=== PATIENT | male | born 1940 | race Caucasian/White ===

== ENCOUNTER 2022-10-23 16:47 | Emergency (ER) | payer OTHER ==
[~2022-10-23] VITALS: Ht 175.3 cm; Wt 72.6 kg
[2022-10-23 16:56] VITALS: BP 166/106
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
[2022-10-23] MEDS ORDERED: diphenhydrAMINE 50 MG/ML VIAL IM ONE (18:20)
[2022-10-23] MEDS ORDERED: OLANZapine 10 MG VIAL IM ONE (18:20)
--- NOTE | 2022-10-23 19:22 | NUR ---
report given to JOSE E Wade for continuity of care.
[2022-10-23] MEDS ORDERED: OLANZapine 5 MG ODT PO PRN (19:25)
--- NOTE | 2022-10-23 20:00 | NUR ---
AWAKE, SLIGHTLY RESTLESS. PT WAS REFUSING LAB DRAW, BUT NOW AGREES.
[2022-10-23 20:11] LABS: BASOPHILS # (AUTO) 0.1 K/uL (0.00-0.22); BASOPHILS % (AUTO) 0.7 % (0.0-2.0); EOSINOPHILS # (AUTO) 0.3 K/uL (0-0.4); EOSINOPHILS % (AUTO) 2.7 % (0.0-4.0); HEMATOCRIT 32.7 % (36-52); LYMPHOCYTES # (AUTO) 1.2 K/uL (2.0-11.5); LYMPHOCYTES % (AUTO) 12.9 % (20.5-51.1); MEAN CORPUSCULAR HEMOGLOBIN 25 pg (27-31); MEAN CORPUSCULAR HGB CONC 34 g/dL (33-37); MEAN CORPUSCULAR VOLUME 75.5 fL (80-94); MONOCYTES # (AUTO) 0.9 K/uL (0.8-1.0); MONOCYTES % (AUTO) 9.3 % (1.7-9.3); NEUTROPHILS # (AUTO) 7.1 K/uL (1.8-7.7); NEUTROPHILS % (AUTO) 74.4 % (42.2-75.2); PLATELET COUNT (AUTO) 229 K/uL (140-450); RED BLOOD CELL COUNT(AUTO) 4.33 MIL/uL (4.20-6.10); RED CELL DISTRIBUTION WIDTH 14.6 % (11.6-13.7); WHITE BLOOD COUNT (AUTO) 9.5 K/uL (4.8-10.8)
[2022-10-23 20:30] LABS: ANION GAP 13.2 (8-16); ASPARTATE AMINOTRANSFERASE 16 U/L (15-37); CARBON DIOXIDE 27.2 mmol/L (21-32); CHLORIDE 103 mmol/L (98-107); CREATININE 1.6 mg/dL (0.6-1.3); GLUCOSE 166 mg/dL (74-106); LIPASE 29 U/L (73-393); MAGNESIUM 1.9 mg/dL (1.8-2.4); PHOSPHORUS 2.6 mg/dL (2.5-4.9); POTASSIUM 3.4 mmol/L (3.5-5.1); SODIUM SERUM 140 mmol/L (136-145); TOTAL BILIRUBIN 0.5 mg/dL (0.0-1.0); UREA NITROGEN, BLOOD 22 mg/dL (7-18)
[2022-10-23 20:31] LABS: ACETAMINOPHEN < 0.5 ug/ml (10-30); SALICYLATE < 2.8 mg/dL (2.8-20.0)
[2022-10-23] MEDS ORDERED: POTASSIUM CHLORIDE 10 MEQ TABER PO ONE (21:05)
--- NOTE | 2022-10-23 22:20 | NUR ---
Packet received for placement. Has been fax to the following facilities [facility]gg[facility] Sin[facility]
--- NOTE | 2022-10-24 | NUR ---
RESTING COMFORTABLY, ASSISTED WITH POSITIONING FOR COMFORT
[2022-10-24 02:13] LABS: BILIRUBIN,URINE 1+ (NEGATIVE); BLOOD, URINE NEGATIVE (NEGATIVE); COLOR,URINE YELLOW (YELLOW); LEUKOCYTE ESTERASE ,URINE NEGATIVE (NEGATIVE); NITRITE, URINE NEGATIVE (NEGATIVE); UGLUCOSE TRACE (NEGATIVE)
[2022-10-24 02:23] LABS: APPEARANCE,URINE SLIGHTLY HAZY (CLEAR)
[2022-10-24 02:24] LABS: HYALINE CASTS, URINE 0-5 /LPF (None Seen); RBC,URINE 0-5 /HPF (0-5); WBC,URINE 0-5 /HPF (0-5)
--- NOTE | 2022-10-24 04:00 | NUR ---
AWAKE AND TRYING TO GET OUT OF BED. ASSISTED BACK IN BED AND POSITIONED FOR COMFORT
[2022-10-24 04:15] LABS: BARBITURATE, URINE NEGATIVE ng/ml (NEG <=200); BENZODIAZEPINE, URINE NEGATIVE ng/mL (NEG <=200); CANNABINOID, URINE NEGATIVE ng/mL (NEG <=50); COCAINE, URINE NEGATIVE ng/mL (NEG <=300); OPIATE, URINE NEGATIVE ng/mL (NEG <=2000); PHENCYCLIDINE SCREEN,URINE NEGATIVE ng/mL (NEG <=25)
--- NOTE | 2022-10-24 06:00 | NUR ---
RESTING WITH EYES CLOSED, RESPIRATIONS REGULAR AND UNLABORED
--- NOTE | 2022-10-24 07:18 | NUR ---
SPOKE WITH NAMITA AT [facility]. WILL REVIEW WITH THEN WILL WILL RETURN CALL
--- NOTE | 2022-10-24 07:26 | NUR ---
REPORT RECEIVED FROM NATHANIEL DORANTES. ASSUMED CARE AT THIS TIME
--- NOTE | 2022-10-24 07:45 | NUR ---
pt at rest w/ eyes closed. respirations even and unlabored. on monitor and storage bin tender. bed at lowest position, bed rails upx2
--- NOTE | 2022-10-24 11:01 | NUR ---
[facility] BEDSIDE FOR PATIENT TX TO [facility]
[2022-10-24 11:21] VITALS: BP 140/63
--- NOTE | 2022-10-24 11:21 | NUR ---
Patient to be transferred to [facility] . Is being transferred due to INPATIENT PSYCH. Receiving facility has accepting physician and available space. ER physician has signed transfer form. Patient or responsible republican has agreed to transfer and signed form. Patient belongings inventoried and will be sent with patient. Copy of nursing notes, lab reports, EKG, Physicians Orders to be sent with patient. Report called to NAMITA DORANTES at receiving facility BY PM NURSE. PT TX BY [facility] [employer]. ETA TO FACILITY <30MIN
== END 2022-10-24 11:21 ==
LOC: MED 16:47
DX: R53.1 Weakness (principal); Z20.822 Contact with and (suspected) exposure to COVID-19; N17.9 Acute kidney failure, unspecified; E87.6 Hypokalemia; D64.9 Anemia, unspecified
CPT/HCPCS: 36415; 80053; 80305; 81001; 82550; 83690; 83735; 84100; 85025; 87426; 93005; 96372; 99285; G0480; G0482; J1200; J3490; 99284

== ENCOUNTER 2022-12-03 21:39 | Inpatient (IN) | payer OTHER ==
[~2022-12-03] VITALS: Ht 177.8 cm; Wt 81.6 kg
[2022-12-03 21:44] VITALS: BP 177/80
--- NOTE | 2022-12-03 21:58 | NUR ---
PT BIBA BLS ER BED
--- NOTE | 2022-12-03 22:04 | NUR ---
PT PLACED ON 5150 FOR GRAVELY DISABLED BY DOE NAIDU.
[2022-12-03 22:39] LABS: BASOPHILS % (AUTO) 0.4 % (0.0-2.0); EOSINOPHILS # (AUTO) 0.3 K/uL (0-0.4); EOSINOPHILS % (AUTO) 3.2 % (0.0-4.0); HEMOGLOBIN 9.7 g/dL (12.0-18.0); LYMPHOCYTES % (AUTO) 9.6 % (20.5-51.1); MEAN CORPUSCULAR HEMOGLOBIN 25 pg (27-31); MEAN CORPUSCULAR HGB CONC 32 g/dL (33-37); MEAN CORPUSCULAR VOLUME 77.5 fL (80-94); MONOCYTES # (AUTO) 1.2 K/uL (0.8-1.0); MONOCYTES % (AUTO) 11.1 % (1.7-9.3); NEUTROPHILS # (AUTO) 7.9 K/uL (1.8-7.7); NEUTROPHILS % (AUTO) 75.7 % (42.2-75.2); PLATELET COUNT (AUTO) 280 K/uL (140-450); RED BLOOD CELL COUNT(AUTO) 3.88 MIL/uL (4.20-6.10); RED CELL DISTRIBUTION WIDTH 15.5 % (11.6-13.7); WHITE BLOOD COUNT (AUTO) 10.4 K/uL (4.8-10.8)
[2022-12-03 22:57] LABS: ALBUMIN 3.4 g/dL (3.4-5.0); ANION GAP 10.4 (8-16); ASPARTATE AMINOTRANSFERASE 25 U/L (15-37); CARBON DIOXIDE 29.6 mmol/L (21-32); CHLORIDE 104 mmol/L (98-107); CREATININE 1.3 mg/dL (0.6-1.3); GLUCOSE 149 mg/dL (74-106); SODIUM SERUM 140 mmol/L (136-145); TOTAL BILIRUBIN 0.4 mg/dL (0.0-1.0); UREA NITROGEN, BLOOD 22 mg/dL (7-18)
[2022-12-03 22:58] LABS: ACETAMINOPHEN < 0.5 ug/ml (10-30); SALICYLATE < 2.8 mg/dL (2.8-20.0)
--- NOTE | 2022-12-04 02:30 | NUR ---
pt to CT via tracie
--- NOTE | 2022-12-04 02:33 | NUR ---
reta sent to lab and received by recyclable materials collector
[2022-12-04] MEDS ORDERED: NACL 0.9% 1,000 ML IV ONE (03:00)
--- NOTE | 2022-12-04 03:53 | NUR ---
Spoke with Rochelle from insurance for clinicals. Per Rochelle might be transferred out
[2022-12-04] MEDS ORDERED: ACETAMINOPHEN 325 MG TAB PO PRN (05:40)
[2022-12-04] MEDS ORDERED: ONDANSETRON 4 MG/2 ML VIAL IVP PRN (05:40)
[2022-12-04] MEDS ORDERED: HYDROcodone/APAP 5/325 MG 1 TAB TAB PO PRN (05:40)
[2022-12-04] MEDS: NACL 0.9% 1,000 ML IV SCH ×2 (06:35→18:31)
--- NOTE | 2022-12-04 06:37 | NUR ---
patient attempted to urinate in the urinal. unable to at this time.
--- NOTE | 2022-12-04 07:16 | NUR ---
Pt report given to Yoly LOCK. Transfer of care at this time.
--- NOTE | 2022-12-04 07:20 | NUR ---
Recieved report from JOSE E Elder for transfer of care.
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
--- NOTE | 2022-12-04 10:21 | NUR ---
Patient refused Heparin. Will notify Dr. Kirby of patients refusal.
--- NOTE | 2022-12-04 10:30 | NUR ---
Dr. Ji data solutions architect notified of patients refusal of Heparin and of psychiatrict consult since patient is on a hold. Received new orders for Psychiatric consult.
--- NOTE | 2022-12-04 11:11 | NUR ---
Per Dr. Shahid, he will call back in about an hour for consult.
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
[2022-12-04 11:47] LABS: APPEARANCE,URINE CLEAR (CLEAR); BILIRUBIN,URINE NEGATIVE (NEGATIVE); BLOOD, URINE NEGATIVE (NEGATIVE); COLOR,URINE YELLOW (YELLOW); LEUKOCYTE ESTERASE ,URINE NEGATIVE (NEGATIVE); NITRITE, URINE NEGATIVE (NEGATIVE); UGLUCOSE NEGATIVE (NEGATIVE)
[2022-12-04 11:58] LABS: BARBITURATE, URINE NEGATIVE ng/ml (NEG <=200); BENZODIAZEPINE, URINE NEGATIVE ng/mL (NEG <=200); CANNABINOID, URINE NEGATIVE ng/mL (NEG <=50); COCAINE, URINE NEGATIVE ng/mL (NEG <=300); OPIATE, URINE NEGATIVE ng/mL (NEG <=2000); PHENCYCLIDINE SCREEN,URINE NEGATIVE ng/mL (NEG <=25)
--- NOTE | 2022-12-04 12:24 | NUR ---
Dr. Ji, admitting doctor, evaluating patient at bedside.
--- NOTE | 2022-12-04 14:44 | NUR ---
Patient is laying in bed, respirations even and unlabored. All needs met by staff.
--- NOTE | 2022-12-04 16:17 | NUR ---
PHYSICAL THERAPY AT BEDSIDE
--- NOTE | 2022-12-04 16:26 | NUR ---
PT BEING EVALUATED BY DR HARMAN AT THIS TIME
--- NOTE | 2022-12-04 17:26 | NUR ---
Speech Therapist at bedside.
--- NOTE | 2022-12-04 17:30 | NUR ---
Per Cher, Speech Therapist, patient ok to swallow. May start on Mechanical Soft with Regular Liquids.
--- NOTE | 2022-12-04 17:34 | NUR ---
PT WAS SEEN FOR DYSPHAGIA. PT WAS ABLE TO SAFELY SWALLOW MS DIET WITH THIN LIQUID. RECOMMENDATION MS DIET WITH THIN LIQUID
--- NOTE | 2022-12-04 18:17 | NUR ---
P.T. NOTES P.T. EVAL COMPLETED; REFER TO EVAL FOR DETAILS.
--- NOTE | 2022-12-04 18:23 | NUR ---
Patient offered dinner tray. Patient is sitting up eating dinner.
--- NOTE | 2022-12-04 18:54 | NUR ---
Patient was made clean and dry. Fresh diaper applied.
--- NOTE | 2022-12-04 19:44 | NUR ---
Patient will be admitted to care of Dr. Kirby. Admited to Med-Surg. Will go to room 121-B. Belongings list completed. Report to JOSE E Mir.
--- NOTE | 2022-12-04 19:50 | NUR ---
RECEIVED REPORT FROM ER NURSE. PATIENT WAS BROUGHT TO [facility] UNIT VIA GURNEY FROM ER. PATIENT IS AWAKE ALERT WITH EPISODES OF CONFUSION ON ROOM AIR SATING 95%. NO S/S OF RESPIRATORY DISTRESS. SKIN INTACT WITH BILATERAL LOWER EXTREMITY REDNESS. DENIES PAIN. IV ACCESS ON THE RIGHT HAND INTACT AND PATENT. MRSA SCREENING DONE. CALL LIGHT WITHIN REACH. SAFETY PRECAUTIONS ARE IN PLACE. PATIENT REFUSED IV FLUIDS.
[2022-12-05 06:26] LABS: ALBUMIN 3.1 g/dL (3.4-5.0); ANION GAP 10.8 (8-16); ASPARTATE AMINOTRANSFERASE 22 U/L (15-37); CARBON DIOXIDE 25.3 mmol/L (21-32); CHLORIDE 104 mmol/L (98-107); CREATININE 1.1 mg/dL (0.6-1.3); GLUCOSE 109 mg/dL (74-106); MAGNESIUM 1.7 mg/dL (1.8-2.4); POTASSIUM 4.1 mmol/L (3.5-5.1); SODIUM SERUM 136 mmol/L (136-145); TOTAL BILIRUBIN 0.6 mg/dL (0.0-1.0); UREA NITROGEN, BLOOD 18 mg/dL (7-18)
[2022-12-05] MEDS: NACL 0.9% 1,000 ML IV SCH (06:40)
[2022-12-05 06:53] LABS: BASOPHILS % (AUTO) 0.5 % (0.0-2.0); EOSINOPHILS # (AUTO) 0.2 K/uL (0-0.4); EOSINOPHILS % (AUTO) 2.4 % (0.0-4.0); HEMATOCRIT 27.3 % (36-52); LYMPHOCYTES # (AUTO) 0.9 K/uL (2.0-11.5); LYMPHOCYTES % (AUTO) 9.2 % (20.5-51.1); MEAN CORPUSCULAR HEMOGLOBIN 26 pg (27-31); MEAN CORPUSCULAR HGB CONC 33 g/dL (33-37); MEAN CORPUSCULAR VOLUME 77.6 fL (80-94); MONOCYTES # (AUTO) 0.7 K/uL (0.8-1.0); MONOCYTES % (AUTO) 7.3 % (1.7-9.3); NEUTROPHILS # (AUTO) 7.9 K/uL (1.8-7.7); NEUTROPHILS % (AUTO) 80.6 % (42.2-75.2); PLATELET COUNT (AUTO) 254 K/uL (140-450); RED BLOOD CELL COUNT(AUTO) 3.52 MIL/uL (4.20-6.10); RED CELL DISTRIBUTION WIDTH 15.4 % (11.6-13.7); WHITE BLOOD COUNT (AUTO) 9.8 K/uL (4.8-10.8)
--- NOTE | 2022-12-05 07:32 | NUR ---
ENDORSED PATIENT TO DAY SHIFT NURSE FOR CONTINUITY OF CARE.
[2022-12-05 08:08] VITALS: BP 156/81
[2022-12-05 18:36] VITALS: BP 140/65
== END 2022-12-05 19:00 | disposition home or self-care (01) | DRG 641 ==
LOC: MED 21:39 → MMU 12-04 05:47 → OBSVTOIN 12-04 05:47 → MTU 12-04 19:48
PROVIDERS: ADMIT Student in an Organized Health Care Education/Training Program; ATTEND Student in an Organized Health Care Education/Training Program
DX: E86.0 Dehydration (principal); R62.7 Adult failure to thrive; R53.81 Other malaise; D64.9 Anemia, unspecified; Z20.822 Contact with and (suspected) exposure to COVID-19; I10 Essential (primary) hypertension; F09 Unspecified mental disorder due to known physiological condition; Z68.25 Body mass index [BMI] 25.0-25.9, adult
CPT/HCPCS: 36415; 70450; 80053; 80305; 81003; 82140; 82553; 83605; 83735; 85025; 87081; 92610; 96360; 97112; 97116; 99285; G0480; G0482; J1644